=== PATIENT | female | born 1990 | race Caucasian/White ===

== ENCOUNTER 2023-08-13 08:26 | Outpatient (CLI) | payer OTHER, SELFPAY ==
--- NOTE | ~2023-08-13 | MMUS_ITS ---
EXAMINATION: MM diagnostic juana RT w mateo, US breast RT complete HISTORY: Right breast lump, 3:00 area 10 cm from nipple TECHNIQUE: ML, MLO and CC 3-D tomosynthesis images of the right breast were performed and synthetic 2 -D images were generated. CAD analysis was submitted and interpreted. High resolution complete right breast ultrasound examination including all 4 quadrants and subareolar area was performed. COMPARISON: None BREAST PARENCHYMAL COMPOSITION: The breasts are extremely dense, which lowers the sensitivity of mamm ography. FINDINGS: MAMMOGRAPHIC FINDINGS: No suspicious mass, architectural distortion, malignant calcification, skin thickening or retraction is evident. The extremely dense fibroglandular stroma may obscure masses anywhere in the breast. Complete right b reast ultrasound examination was performed. ULTRASOUND: The area of clinical complaint of right breast lump at 3:00 10 cm from the nipple there is a septated 4 x 8 mm cyst with through transmission posterior enhancement, no internal vascularity, benign. No suspicious mass or shadowing is detected anywhere in the right breast. IMPRESSION: 1. Benign findin x 8 mm septated cyst at 3:00 10 cm from nipple 2. No mammographic or sonographic evidence of malignancy BI-RADS Category 2: Benign finding(s). Reviewed, dictated and finalized at location A. IMPRESSION: 1. Benign findin x 8 mm septated cyst at 3:00 10 cm from nipple 2. No mammographic or sonographic evidence of malignancy BI-RADS Category 2: Benign finding(s).
== END 2023-08-13 08:27 ==
DX: N63.12 Unspecified lump in the right breast, upper inner quadrant (principal); Z78.9 Other specified health status
CPT/HCPCS: 76641; 77061; 77065; G0279

== ENCOUNTER 2025-07-05 11:47 | Emergency (ER) | payer BC, SELFPAY ==
--- NOTE | ~2025-07-05 | CT_ITS ---
EXAMINATION: CT abdomen pelvis w con DATE: 07/05/2025 15:46 INDICATION: Low abdominal pain. Diarrhea. TECHNIQUE: Computed tomography (CT) of the abdomen and pelvis was performed with 100 mL Omnipaque 350 intravenous contrast. Automated exposure control and iterative reconstruction technique were employed. The dose-length product was 187.40 mGy-cm. COMPARISON: None. FINDINGS: The visualized portions of the lung bases are clear without pneumonia or pleural effusion. The heart size is normal. No pericardial effusion. There is a 5 mm cyst in the liver. The gallbladder, spleen, pancreas, adrenal glands, and kidneys are normal. There is wall thickening throughout the colon with mucosal hyperemia, consistent with colitis. The appendix is normal. There are no pathologically enlarged lymph nodes. There is physiologic fluid in the pelvis. There is diastasis of the rectus abdominis muscles. There is mild lumbar spondylosis. IMPRESSION: 1. Pancolitis. Reviewed, dictated and finalized at location E. IMPRESSION: 1. Pancolitis.
--- OUTSIDE RECORDS SUMMARY | 2025-07-05 11:00 | XMS_ITS | Encounter Summary ---
Author Organization [facility] Healthcare Address [address] [place] [address] Care Team Providers Care Sawmill Worker Name Role Phone Mildred Payne Unavailable [phone] Mildred Payne Primary Care Provider [phone] Reason for Visit * Reason Comments Abdominal Pain Started on Friday , cramping, burning, and bloated Diarrhea Started on Friday , having lots of episodes but she is not getting a lot out at a time Encounter Details Date Type Department Care Team (Late st Contact Info) Description 07/05/2025 11:00 AM CDT Office Visit [facility] Medical [facility] Convenient Care at [address] [address] Betty Cortez NP [address] [place] [id number] Abdominal pain (Primary Dx); Diarrhea, unspecified type Social History Tobacco Use Types Packs/Day Years Used Date Smoking Tobacco: Never Smokeless Tobacco: Never Alcohol Use Standard Drinks/Week Comments Yes 1 (1 standard drink = 0.6 oz pur e alcohol) PHQ-2 Answer Date Recorded PHQ-2 Total Score (If total score is 3 or more points, staff should administer the PHQ-9) 0 06/30/2025 Early Depression Scale Answer Date Recorded Early Depression Scale Total 1 07/24/2020 The thought of harming myself has occurred to me . Never 07/24/2020 AUDIT-C Answer Date Recorded Q1: How often do you have a drink containing alc ohol? 2-4 times a month 06/30/2025 Q2: How many drinks containi ng alcohol do you have on a typical day when you are drinking? 1 or 2 06/30/2025 Q3: How often do you have si x or more drinks on one occasion? 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 Gender Identity Female 03/13/2020 4:31 PM CDT Sexual Orientation Straight 03/13/2020 4: 31 PM CDT documented as of this encounter Last Filed Vital Signs Vital Sign Reading Time Taken Comments Blood Pressure 118/84 07/05/2025 11:11 AM CDT Pulse 77 07/05/2025 11:11 AM CDT Temperature 37.3 C (99.1 F) 07/05/2025 11:11 AM CDT Respiratory Rate 18 07/05/2025 11:11 AM CDT Oxygen Saturation 97% 07/05/2025 11:11 AM CDT Inhaled Oxygen Concentration - - Weight 54.2 kg (119 lb 6.4 oz) 07/05/2025 11:11 AM CDT Height 162.6 cm (5' 4.02) 07/05/2025 11:11 AM C DT Body Mass Index 20.48 07/05/2025 11:11 AM CDT documented in this encounter Progress Notes * Betty Cortez, NEON TECHNICIAN - 07/05/2025 11:00 AM CDT Images from the original note were not included. Subjective/Objective Patient ID: Duyen Barksdale is a 35 y.o. female. This patient has verbally consented to recording this visit in order to utilize AI technology in generating this note. Chief Complaint Abdominal Pain (Started on Friday, cramping, burning, and bloated) and Diarrhea (Started on Friday, having lots of episodes but she is not getting a lot out at a time ) History of Present Illness Duyen Barksdale is a 35 year old female who presents with abdominal pain, cramping, and diarrhea. Symptoms began last Friday with burning abdominal pain, bloating, and cramping described as 'like a contraction.' The cramping is severe, lasting three to five minutes, and is accompanied by an urgent need to defecate, resulting in small amounts of diarrhea. Over the weekend, she passed a medium amount of diarrhea but still felt as if something was blocking or needed to come out. She was seen by her primary care provider last and was prescribed Pepcid and fiber pills, although the fiber pills were not sent. She has a history of gastrointestinal issues but has not been diagnosed with IBS or Crohn's disease. For treatment, she has been using Pepcid, Miralax, Tums, and Gas X. She took Miralax three times a day for three days over the weekend. She reported having 'okay days' and was able to eat more comfortably on Friday and Friday. However, she has struggled to eat since then, consuming only a little yogurt today. No history of abdominal surgeries, fever, vomiting, or blood in stool. She experiences nausea when the pain occurs. She is three months and confirms there is no chance of . Review of Systems All other systems reviewed and are negative. Physical Exam ABDOMEN: Bowel sounds present in all quadrants. Diffuse abdominal tenderness on palpation. Physical Exam Vitals reviewed. Constitutional: General: She is not in acute distress. Appearance: Normal appearance. She is not ill-appearing. HENT: Head: Normocephalic. Mouth/Throat: Lips: [place]. Cardiovascular: Rate and Rhythm: Normal rate. Pulmonary: Effort: Pulmonary effort is normal. Breath sounds: Normal breath sounds. Abdominal: General: Bowel sounds are decreased. There is no distension. Palpations: Abdomen is soft. Tenderness: There is generalized abdominal tenderness and tenderness in the right upper quadrant, right lower quadrant, left upper quadrant and left lower quadrant. Skin: General: Skin is warm. Neurological: Mental Status: She is alert and oriented to person, place, and time. Psychiatric: Mood and Affect: Mood normal. Vitals: 07/05/25 1111 BP: 118/84 Pulse: 77 Resp: 18 Temp: 37.3 ??C (99.1 ??F) SpO2: 97% Weight: 54.2 kg (119 lb 6.4 oz) Height: 162.6 cm (5' 4.02) No results found. Past Medical History: Diagnosis Date Abnormal Pap smear of cervix ASCUS of cervix with negative high risk HPV 03/07/2017 GBS (group B Streptococcus carrier), +RV culture, currently 05/19/2020 Current Outpatient Medications: famotidine (PEPCID) 20 mg tablet, Take 1 tablet (20 mg total) by mouth 2 (two) times a day, Disp: 60 tablet, Rfl: 11 [id number] 27-1-25-500 mg capsule, Take by mouth daily, Disp: , Rfl: polycarbophil (FIBERCON) 625 mg tablet, Take 1 tablet (625 mg total) by mouth daily (Patient not taking: Reported on 07/05/2025), Disp: 90 tablet, Rfl: 1 No Known Allergies Social History Tobacco Use Smoking status: Never Smokeless tobacco: Never Substance and Sexual Activity Drug use: Never Sexual activity: Yes Partners: Male control/protection: Condom Male, None Alcohol Use: Not At Risk (06/30/2025) AUDIT-C Frequency of Alcohol Consumption: 2-4 times a month Average Number of Drinks: 1 or 2 Frequency of Binge Drinking: Never Past Surgical History: Procedure Laterality Date HM SIGMOIDOSCOPY 2008 WISDOM TOOTH EXTRACTION Procedures Assessment/Plan 1. Abdominal pain (Primary) 2. Diarrhea, unspecified type Results No results found for this or any previous visit (from the past 4 hours). Assessment & Plan Abdominal pain with diarrhea and cramping Severe abdominal pain with diarrhea and cramping, likely IBS-C exacerbated by recent Augmentin use,gastritis, or possible impaction. - Recommend ER evaluation for further assessment and management. - Discussed starting with KUB x-ray for stool impaction, patient declined and will head in the ER - Patient can not stand up straight due to abdominal pain - Advise ER visit for potential CT scan, pain management, and evaluation for rectal prolapse or impaction. Education --GO TO ER Disposition Treatment plan including expectations, follow up, and return precautions discussed with patient/parent, verbalizes understanding. Medication dosage, use, and potential adverse reactions discussed with patient/parent. Advised to follow up with PCP if symptoms do not resolve as expected or sooner if condition worsens. Signs/symptoms warranting ER evaluation reviewed. Patient and/or guardian was given an opportunity to ask questions, questions answered. Betty Cortez NP This office note has been partially dictated using LEAFER software, and as a result portions of the record may have been created with this software. Occasional wrong-word or '[id number]' substitutions may have occurred due to the inherent limitations of voice recognition software. Read the chartcarefully and recognize, using context, where substitutions have occurred. Cosigned by Tio Kaiser MD at 07/05/2025 1:42 PM CDT documented in this encounter Plan of Treatment Not on file documented as of this encounter Visit Diagnoses Diagnosis Abdominal pain- Primary Abdominal pain, unspecified site Diarrhea, unspecified type documented in this encounter Care Teams Sawmill Worker Relationship Specialty Start Date End Date Mildred Payne PA [address] [place] [address] PCP - General 05/28/19 Mildred Payne PA [address] [place] [address] Physician Scraper Meat Physician Scraper Meat 01/29/19 documented as of this encounter
--- OUTSIDE RECORDS SUMMARY | 2025-07-05 11:00 | XMS_ITS | Encounter Summary ---
Author Organization [facility] Healthcare Address [address] [place] [address] Care Team Providers Care Material Distributor Name Role Phone Mildred Payne Unavailable [phone] Mildred Payne Primary Care Provider [phone] Reason for Visit * Reason Comments Abdominal Pain Started on Friday , cramping, burning, and bloated Diarrhea Started on Friday , having lots of episodes but she is not getting a lot out at a time Encounter Details Date Type Department Care Team (Late st Contact Info) Description 07/05/2025 11:00 AM CDT Office Visit [facility] Medical Group Convenient Care at [address] [address] Betty Cortez NP [address] [place] [address] Abdominal pain (Primary Dx); Diarrhea, unspecified type Social History Tobacco Use Types Packs/Day Years Used Date Smoking Tobacco: Never Smokeless Tobacco: Never Alcohol Use Standard Drinks/Week Comments Yes 1 (1 standard drink = 0.6 oz pur e alcohol) PHQ-2 Answer Date Recorded PHQ-2 Total Score (If total score is 3 or more points, staff should administer the PHQ-9) 0 06/30/2025 [place] Depression Scale Answer Date Recorded [place] Depression Scale Total 1 07/24/2020 The thought [...] on file 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 HENT: Head: Normocephalic. Mouth/Throat: Lips: [place]. Cardiovascular: Rate and Rhythm: Normal rate. Pulmonary: [...] a day, Disp: 60 tablet, Rfl: 11 [id number] 27-1-25-500 mg capsule, Take by mouth daily, [...] office note has been partially dictated using ThisLife software, and as a result portions of the record may have been created with this software. Occasional wrong-word or 'liijl-[id number]' substitutions may have occurred due to the [...] type documented in this encounter Care Teams Material Distributor Relationship Specialty Start Date End Date Mildred Payne PA [address] [place] [address] PCP - General 05/28/19 Mildred Payne PA [address] [place] [address] Physician Rolling Machine Tender Physician Rolling Machine Tender 01/29/19 documented as of this encounter
[2025-07-05 12:29] VITALS: BP 124/82; PULSE 70; RESP 14; TEMP 37.3; O2SAT 100
--- OUTSIDE RECORDS SUMMARY | 2025-07-05 13:48 | XMS_ITS | Patient Health Record ---
Author Organization [facility] Address [address] [place], [place] [id number] Care Team Providers Care Fly Rail Operator Name Role Phone JAILENE ROWLEY Unavailable [phone] Mildred Payne Unavailable Unavailable Reason For Referral No Information Plan Of Treatment No Information Insurance Providers Payer Name Payer Address Payer Phone Subscriber Number Group Number Insured Name Patient Relationship to Insured Coverage Start Date Coverage End Date [employer] [id number] [place], [place] [id number] EDUARDO DOWNEY Self - patient is the insured
[2025-07-05] MEDS: ONDANSETRON INJ 4 MG/2 ML VIAL IV PUSH (14:23)
[2025-07-05] MEDS: MORPHINE SULFATE (*CRX) 4 MG/ML INJ IV PUSH (14:24)
[2025-07-05] MEDS: SODIUM CHLORIDE 0.9% IV 1,000 ML 999 ML IV CONT (14:27)
--- OUTSIDE RECORDS SUMMARY | 2025-07-05 14:27 | XMS_ITS | Clinical Summary ---
Author Organization [address] Address [address] [place] [id number] Care Team Providers Care Machine Builder Name Role Phone Mildred Payne Unavailable [phone] Mildred Payne Primary Care Provider [phone] Allergies No known active allergies Medications [id number] 27-1-25-500 mg capsule Take by mouth daily Active famotidine (PEPCID) 20 mg tablet Take 1 tablet (20 mg total) by mouth 2 (two) times a day 60 tablet 11 5 06/30/20 26 Active polycarbophil (FIBERCON) 625 mg tablet Take 1 tablet (625 mg total) by mouth daily 90 tablet 1 5 12/28/19 26 Active Additional Information Patient not taking.Reported on 07/05/2025 amoxicillin-cl avulanate (AUGMENTIN) 875-125 mg per tablet Take 1 tablet by mouth 2 (two) times a day 5 06/30/20 25 Discontin ued(Thera py completed ) Active Problems Problem Noted Date Diagnosed Date Abdominal pain 06/30/2025 Assessment & Plan (07/03/2025 11:42 AM CDT): Chronic constipation 06/30/2025 Assessment & Plan (07/03/2025 11:42 AM CDT): Irritable bowel syndrome with constipation 06/30 Assessment & Plan (07/03/2025 11:42 AM CDT): Health maintenance examination 04/30/2021 Overview (10/29/2023): PMH: 10/29/23 Last pap:11/29/21 Last mammogram: Last dexa: Last colonoscopy/cologuard: Last tdap:03/30/2020 Last Prevnar/pneumovax: Last Shingrix: Last eye exam: Assessment & Plan (10/29/2023 10:36 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): PMH: 10/29/23 Last pap:11/29/21 Last mammogram: Last dexa: Last colonoscopy/cologuard: Last tdap:03/30/2020 Last Prevnar/pneumovax: Last Shingrix: Last eye exam: Assessment & Plan (04/30/2021 10:06 AM CDT): PMH: 04/30/2021 Last pap:01/2018 Last mammogram: Last dexa: Last colonoscopy/cologuard: Last tdap:03/30/2020 Last Prevnar/pneumovax: Last Shingrix: Last eye exam: Resolved Problems Problem Noted Date Diagnosed Date Resolved Date Supervision of other normal , antepartum 12/27/2021 10/29/2023 GBS (group B Streptococcus c arrier), +RV culture, currently 05/19/2020 04/30/2021 Supervision of normal first , antepartum 11/18/2019 07/25/2020 Overview (03/16/2020): First Trimester: [x] Labs [x] Genetic Screenin12/16/2019 2nd Trimester: [x] Anatomy ultrasound 3rd Trimester: [x] CBC, HIV, syphilis screen [x] 1hr GCT (26-28wks): [] Tdap (27-36wks) [] Rhogam (if Rh neg): [] GBS Annual physical exam 01/29/2019 020 Assessment & Plan (01/29/2019 1:12 PM CDT): Pap due in 2019 BMI less than 19,adult 01/29/201912/27 Oral contraceptive pill surveillance 01/28/2018 11/01/2019 Assessment & Plan (01/29/2019 1:12 PM CDT): Stable continue meds ASCUS of cervix with negative high risk HPV 03/07/2017 04/30/2021 Encounters Date Type Department Care Team Description 07/05/2025 11:00 AM CDT Office Visit [facility] Care at [address] [id number] Betty Cortez NP Abdominal pain (Primary Dx); Diarrhea, unspecified type 06/30/2025 9:00 AM CDT Office Visit [facility] [address] [phone] Anmol Sapp MD Irritable bowel syndrome with constipation (Primary Dx); Abdominal pain; Chronic constipation from Last 3 Months Immunizations Immunization Administration Dates Next Due DTaP 01/19/1997, 3,01/20/1993,10/30,1992 HPV, Quadrivalent 01/19/2010,07/28/2009,05/23/20 09 Hep A, Unspecified 06/04/2000,11/15/1999 Hep B, Unspecified 06/08/2010, 3,1992,08/22 Hib (HbOC) 09/29/1993, 3,1992,08/22 IPV 01/19/1997, 3,1992,08/22 Influenza, Quadrivalent, Yohana l Culture-based MDCK, Preservative Free, Antibiotic Free, Intramuscular 09/25/2022 Influenza, Quadrivalent, Spl it, Preservative Free, Intramuscular 07/22/2023,08/06/2020,08/06/2020 Influenza, Unspecified 06/30/2025(Deferr ed: Patient Refused),09/03/2024,09/03/2021, 018,08/01/2015 MMR 10/29/2023,01/19/1997,09/29/1993 Meningococcal MCV4P (Menactra) 05/20/2008 PPD TEST 05/25/2019, 9,07/01/2018,06/24,05/06/2014,04/29/2014,06/09/2010 ,10/31/1997,01/17/1997,07/21/1993 Pfizer SARS-CoV-2 Monovalent Vaccination (12+ Yrs) PURPLE 12/07/2020,11/14/2020 TD Preservative Free 05/25/2005 Tdap 12/30/2024,03/30/2020,04/29/2014 Varicella 04/29/2014 Surgical History Surgery Date Site/Laterality Comments WISDOM TOOTH EXTRACTION HM SIGMOIDOSCOPY 10/20/2008 - 10/19/2009 Medical History Medical History Date Comments ASCUS of cervix with negative high risk HPV 02/17 Abnormal Pap smear of cervix GBS (group B Streptococcus c arrier), +RV culture, currently 05/19/2020 Family History Medical History Relation Name Comments Heart disease Maternal Grandfather Soham Grayson Stroke Maternal Grandfather Soham Grayson Breast cancer Maternal Grandmother Ted Grayson Crohn's disease Maternal Grandmother Ted Grayson Diabetes Maternal Grandmother Ted Grayson Arthritis Mother Tahmina Mejia Lung cancer Paternal Grandfather Heart attack Paternal Grandmother Soham Grayson Colon cancer Neg Hx Ovarian cancer Neg Hx Uterine cancer Neg Hx Relation Name Status Comments Father Alive Maternal Grandfather Soham Grayson Maternal Grandmother Ted Grayson Mother Tahmina Mejia Alive Paternal Grandfather Paternal Grandmother Soham Grayson Alive Sister Alive Social History Tobacco Use Types Packs/Day Years Used Date Smoking Tobacco: Never Smokeless Tobacco: Never Tobacco Cessation:Counseling Given: Not Answered Alcohol Use Standard Drinks/Week Comments Yes 1 (1 standard drink = 0.6 oz pur e alcohol) PHQ-2 Answer Date Recorded PHQ-2 Total Score (If total score is 3 or more points, staff should administer the PHQ-9) 0 06/30/2025 [place] Depression Scale Answer Date Recorded [place] Depression Scale Total 1 07/24/2020 The thought [...] on file Legal Sex Female 7:48 PM GROUND SU[employer]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 ASSEMBLER Gender Identity Female 03/13/2020 4:31 PM CDT Sexual Orientation Straight 03/13/2020 4: 31 PM CDT Obstetrics History Para Term AB IAB SAB Ectopic Multiple Livin g Live Births 2 1 1 0 0 0 0 0 0 1 1 Date Outcome GA Total Labor Labor/2nd/3rd Weight Sex Type Anes PTL Rupal A1 A5 Name Clin 020 Term 40w 3d 3.6 kg (7 lb 15 oz) M Vag-S pont Epidur al Livin g Complications:None Delivery Location:This [facility] Last Filed Vital Signs Vital Sign Reading [...] Mass Index 20.48 07/05/2025 11:11 AM CDT Plan of Treatment Health Maintenance Due Date Last Done Comments Regular Well Visit/Exam 18-64 10/29/2024 10/29/2023, 11/29/2021, 04/30/2021, Additional history exists Covid-19 Vaccine ( season) 2025 12/07/2020, 11/14/2020 Influenza Vaccine (#1) 2025 4, 07/22/2023, 09/25/2022, Additional history exists Cervical Cancer Screening 11/29/20262021, 01/28/2018, 03/07/2017, Additional history exists DTaP/Tdap/Td Vaccine (9 - Td or Tdap) 12/30/2034 12/30/2024, 03/30/2020, 04/29/2014, Additional history exists HPV Vaccines Completed 01/19/2010, 06/2009, 05/23/2009 Hepatitis B Screening Completed 06/08/2010 , 04/14/1993, 1992, Additional history exists Varicella Vaccines Discontinued 04/29/2014 Hepatitis C Screening Completed 11/29/2021, 020 Depression Screening Discontinued 06/30/2025, 11/05/2023, 10/29/2023, Additional history exists Pneumococcal vaccine <65 Aged Out No longer eligible based on patient's age to complete this topic Procedures Procedure Name Priority Date/Time Associated Diagnosis Comments HEPATITIS C ANTIBODY Routine 11/29/2021 11:40 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 Missed menses Positive test PAP WITH REFLEX TO HIGH RISK HPV Routine 11/29/2021 9:30 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 Missed menses Screening for cervical cancer Positive test from Last 3 Months or Most Recently Relevant to Health Maintenance Results * Hepatitis C antibody (11/29/2021 11:40 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) Hep C Ab Nonreactive Nonreactive [facility] RUVALCABA Comment: Interpretive Data Nonreactive: Antibodies to HCV not detected. Does NOT exclude the possibility of recent exposure to HCV. Equivocal: Equivocal for HCV antibodies. Supplemental molecular testing will be automatically performed to determine infection status in accordance with current CDC screening recommendations. Reactive: Positive for HCV antibodies. This may represent current or past HCV infection. Supplemental molecular testing will be automatically performed to determine current infection status in accordance with current CDC screening recommendations. Interpretive data was last revised on 2020. Blood 11/29/2021 11:4 0 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 11/29/2021 3:11 PM GROUND SUPPORT EQUIPMENT ASSEMBLER us Merle Bueno [facility] MICROBIOLOGY - GENE RAL ORDERABLES Final Result [facility] [address] [facility] Department [place] [address] * (ABNORMAL) Pap with reflex to High Risk HPV (11/29/2021 9:30 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) Thin prep (Pap test) 11/29/2021 9:30 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 12/03/2021 9:30 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 Narrative PATHOLOGY [facility] - 12/06/2021 9:56 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 [facility] Department of Pathology [address] [place] [id number] Final Report with Addendum Note to Patients: This report may contain a detailed description of human tissue sent by a health care provider to the laboratory for pathologic evaluation. The content of this report is essential for diagnosis and may provide important critical findings. This information may be unfamiliar to patients to review without a medical professional present. It is advised that the patient review this report in the presence of a health care provider who can answer questions and explain the details. Patient Name: EDUARDO JI V. Address: [address] [place] [id number] Gender: F : 1990 (Age: 31) Service: Laboratory Location: N : [id number] Hospital #: [id number] Patient Type: [facility] SPECIMEN Taken: 11/29/2021 Received: 12/03/2021 Accessioned:: 12/04/2021 Reported: 12/06/2021 Physician(s): Merle Bueno [facility] Diagnosis: Source of Specimen: Imaged Thinprep Pap Test w/ Reflex HPV - Airport Operations Specialist Cytologic Material Specimen Adequacy: - Satisfactory for evaluation; endocervical/transformation zone component present General Category: - Epithelial cell abnormality Interpretation/Results: - Atypical squamous cells of undetermined significance; - High risk HPV test pending -- addendum to follow SENTHIL Marsh(ASCP) Ludwig Botello M.D. Report Electronically Reviewed and Signed Out By Ludwig Btoello M.D. 12/06/2021 09:56:36 Addenda: HPV Test Interpretation NEGATIVE for types 16, 18, 31, 33, 35, 39, 45, 51, 52, 56, 58, 59, 66 and 68. Test performed utilizing Gen-Probe Aptima assay. SENTHIL Sears(ASCP) Report Electronically Reviewed and Signed Out By SENTHIL Sears(ASCP) 12/07/2021 14:15:16 Specimen(s) Received: A: Imaged Thinprep Pap Test w/ Reflex HPV - Airport Operations Specialist Cytologic Material Clinical History: Last Menstrual Period: 10/05/21 Menstrual History: The Pap test is a screening test used to aid in the detection of cervical cancer and its precursors. It should not be the sole means by which malignant and premalignant lesions are diagnosed. Both false negative and false positive results may occur. It also has poor sensitivity for the detection of endometrial lesions and should not be used to evaluate suspected endometrial abnormalities. For these reasons it is most important to obtain Pap tests at regular intervals. The performance characteristics of some immunohistochemical stains, fluorescence in-situ hybridization tests and immunophenotyping by flow cytometry cited in this report (if any) were determined by the Surgical Pathology Department at [facility] as part of an ongoing quality control assistant program and in compliance with federally mandated regulations drawn from the Clinical Laboratory Improvement Act of 1988 (CLIA '88). Some of these tests rely on the use of analyte specific reagents and are subject to specific labeling requirements by the US Food and Drug Administration. Such diagnostic tests may only be performed in a facility that is certified by the Department of Health and Human Services as a high complexity laboratory under CLIA '88. The FDA has determined that such clearance or approval is not necessary. This test is used for clinical purposes. It should not be regarded as investigational or for research. Nevertheless, federal rules concerning the medical use of analyte specific reagents require that the following disclaimer be attached to the report: This test was developed and its performance characteristics determined by the Surgical Pathology Department [facility]. It has not been cleared or approved by the U. S. Food and Drug Administration. Merle Bueno [facility] CYTOLOGY ORDERABLES Final Result PATHOLOGY [facility] from Last 3 Months or Most Recently Relevant to Health Maintenance Insurance [facility] [employer] Address: [address] [place] [address] Advance Directives For more information, please contact: [phone] Documents on File Type Date Recorded Patient Ramp Agent Expl anation ADVANCE DIRECTIVE 03/13/2021 3:25 PM Care Teams Machine Builder Relationship Specialty Start Date End Date Mildred Payne PA [address] [place] [address] PCP - General 05/28/19 Mildred Payne PA [address] [place] [address] Physician Fisher Clam Physician Fisher Clam 01/29/19
[2025-07-05 14:37] LABS: Hematocrit 41.8 % (37.0-47.0); Hemoglobin 13.6 g/dL (12.0-15.0); Immature Granulocyte Percent A 0.2 % (0-0.5); Lymphocytes Absolute Auto 1.26 K/mm3 (0.9-3.2); Mean Corpuscular HGB Conc 32.5 g/dl (32-36); Mean Corpuscular Hemoglobin 28.4 pg (26-34); Mean Corpuscular Volume 87.3 fl (80-100); Nucleated Red Blood Cells Absolute Auto 0.000 K/mm3 (0.0-0.012); Nucleated Red Blood Cells Perc 0.0 % (0.0-0.2); Platelet Count Result 251 k/mm3 (150-375); Red Blood Count 4.79 M/mm3 (4.2-5.4); White Blood Count 10.1 K/mm3 (4.5-10.0)
[2025-07-05 14:48] LABS: Alanine Aminotransferase 17 U/L (6-35); Albumin Level 4.2 g/dL (3.5-5.1); Alkaline Phosphatase 90 U/L (38-126); Anion Gap 9 mmol/L (4-12); Aspartate Amino Transferase 20 U/L (14-36); Bilirubin,Total 0.6 mg/dL (0.2-1.3); Blood Urea Nitrogen 11 mg/dL (7-17); Calcium 8.7 mg/dL (8.4-10.2); Carbon Dioxide 23 mmol/L (22-30); Chloride 105 mmol/L (98-107); Estimated CRCL calculation 82 ml/min; Estimated Glomerular Filt Rate > 60; Glucose 84 mg/dL (65-110); Lipase 46 U/L (23-300); Potassium 3.8 mmol/L (3.4-5.0); Sodium 137 mmol/L (137-145); Total Protein 7.2 g/dL (6.3-8.2)
--- NOTE | 2025-07-05 14:58 | ED_ITS ---
HPI - Abdominal Pain General Chief Complaint: Abdominal Pain Stated Complaint: ABD PAIN Time Seen by Provider: 07/05/25 12:43 Source: patient Mode of arrival: ambulatory Limitations: no limitations History of Present Illness HPI narrative: Patient is a 35-year-old female who presents the ED with report of lower abdominal pain. Patient reports she was on Augmentin 2 weeks ago for a sinus infection. She began having diarrhea and abdominal discomfort with this and stop taking this after 9 doses. She reports having persistent pain and diarrhea. Denies rectal bleeding, melena. Reports some nausea associated with the pain. Denies vomiting. Denies fevers. Patient is 3.5 months . Related Data Allergies Allergy/AdvReac Type Severity Reaction Status Date / Time No Known Allergies Allergy Verified 07/05/25 11:49 Review of Systems 2 Review of Systems: All systems reviewed & are unremarkable except as noted in HPI. All systems reviewed & are unremarkable except as noted in HPI and below Exam 2 Narrative: GENERAL: Well appearing, thin, non-toxic, in no acute distress. HEAD: Normocephalic, atraumatic. RESPIRATORY: Airway patent, respirations nonlabored. Clear to auscultation bilaterally, no rales, rhonchi, wheezing. CARDIOVASCULAR: Regular rate and rhythm without murmurs, rubs, or gallops. ABDOMINAL: Soft, mild diffuse tenderness throughout lower abdomen, nondistended. Normoactive BS. MUSCULOSKELETAL: Moves all extremities. No gross deformities. SKIN: Warm, dry, normal color. NEURO: A&O X3. Speech clear. Cranial nerves II-XII grossly intact. Steady gait. No ataxic movements. PSYCHIATRIC: Appropriate mood and affect. Normal interaction. Course Vital Signs Vital signs: Vital Signs Temperature 99.2 F 07/05/25 12:29 Pulse Rate 70 07/05/25 12:29 Respiratory Rate 14 07/05/25 12:29 Blood Pressure 124/82 07/05/25 12:29 Pulse Oximetry 100 07/05/25 12:29 Temperature 99.2 F 07/05/25 12:29 Pulse Rate 70 07/05/25 12:29 Respiratory Rate 14 07/05/25 12:29 Blood Pressure 124/82 07/05/25 12:29 Pulse Oximetry 100 07/05/25 12:29 MDM - Abdominal Pain MDM Narrative Medical decision making narrative: Patient presented to ED with several day hx of lower abdominal discomfort, diarrhea. Vital signs are stable upon arrival. Patient in no acute distress, but did report diffuse discomfort with palpation of abdomen. Cbc with blood cell count of 10.1. CMP is unremarkable. No significant abnormalities or signs of dehydration. Normal LFTs and lipase. UA with evidence of dehydration, 11-20 WBC. Patient denies any urinary complaints. Sent for culture. CT scan of abdomen/pelvis was obtained and showing evidence of parkinson colitis. Consistent with clinical picture. Discussed lab and imaging findings with patient. She is feeling much improved with supportive therapy in the ED. Discussed antibiotic regimen for pancolitis including Cipro/Flagyl. Patient is currently . Per epocrates, it is not recommended to breast feed while on ciprofloxacin during the duration antibiotics and for 2 days afterwards. Discussed this with patient and family. Utilize shared decision-making. They are in agreement with continuing with antibiotics. All questions were answered. Also prescribed Bentyl and short course of pain medicine for home use. Patient advised to follow-up with PCP for further evaluation. Given strict return precautions. She is in agreement with plan. Discharged in stable condition. Medical Records Attestation: I reviewed the patient's medical records. Lab Data Attestation: I reviewed the patient's lab results. 07/05/25 14:21 07/05/25 14:21 Labs: Lab Results 07/05/25 07/05/25 07/05/25 Range/Units 14:21 15:14 15:16 WBC 10.1 H (4.5-10.0) K/mm3 RBC 4.79 (4.2-5.4) M/mm3 Hgb 13.6 (12.0-15.0) g/dL Hct 41.8 (37.0-47.0) % MCV 87.3 (80-100) fl MCH 28.4 (26-34) pg MCHC 32.5 (32-36) g/dl RDW 12.5 (11.5-14.5) % Plt Count 251 (150-375) k/mm3 MPV 11.0 H (7.4-10.4) fl Immature Gran % (Auto) 0.2 (0-0.5) % Neut % (Auto) 79.3 H (45.5-73.1) % Lymph % (Auto) 12.4 L (18.3-44.2) % Hendricks % (Auto) 7.2 (2.6-8.5) % Eos % (Auto) 0.5 (0-4.4) % Baso % (Auto) 0.4 (0.2-1.2) % Lymph # (Auto) 1.26 (0.9-3.2) K/mm3 Hendricks # (Auto) 0.7 H (0.1-0.6) K/mm3 Eos # (Auto) 0.1 (0-0.3) K/mm3 Baso # (Auto) 0.0 (0.0-0.1) K/mm3 Abs Immat Gran (auto) 0.02 (0.00-0.031) K/mm3 Absolute Neuts (auto) 8.0 H (1.3-6.7) K/mm3 Absolute Nucleated RBC 0.000 (0.0-0.012) K/mm3 Nucleated RBC % 0.0 (0.0-0.2) % Sodium 137 (137-145) mmol/L Potassium 3.8 (3.4-5.0) mmol/L Chloride 105 (98-107) mmol/L Carbon Dioxide 23 (22-30) mmol/L Anion Gap 9 (4-12) mmol/L BUN 11 (7-17) mg/dL Creatinine 0.73 (0.7-1.0) mg/dL Estim Creat Clear Calc 82 ml/min Estimated GFR > 60 (59 - ) Glucose 84 (65-110) mg/dL Calcium 8.7 (8.4-10.2) mg/dL Total Bilirubin 0.6 (0.2-1.3) mg/dL AST 20 (14-36) U/L ALT 17 (6-35) U/L Alkaline Phosphatase 90 (38-126) U/L Total Protein 7.2 (6.3-8.2) g/dL Albumin 4.2 (3.5-5.1) g/dL Lipase 46 (23-300) U/L Urine Color Yellow (Yellow) Urine Appearance Clear (Clear) Urine pH 5.5 (5.0-9.0) Ur Specific [place] 1.027 (1.001-1.035) Urine Protein Negative (Negative) mg/dL Urine Glucose (UA) Negative (Negative) mg/dL Urine Ketones 3+ H (Negative) mg/dL Ur Blood (Man) Negative (Negative) Urine Nitrate Negative (Negative) Urine Bilirubin Negative (Negative) Urine Urobilinogen 0.2 (<2.0) mg/dL Leukocyte Esterase Rfl Trace H (Negative) SHERWIN/UL Urine RBC 0-2 (0-2) /hpf Urine WBC 11-20 H (0-3) /hpf Ur Squamous Epith Cells Moderate (Few) /hpf Urine Bacteria None seen /hpf Urine Casts 0-2 POC Urine HCG, Qual Negative (Negative) Imaging Data Attestation: I personally reviewed and interpreted this imaging study as follows: Radiologist's impression: ITS Impressions Abdomen/Pelvis CT 07/05/25 15:53 IMPRESSION: 1. Pancolitis. Discharge Plan Discharge Clinical Impression: Pancolitis Patient Disposition: Home Condition: Stable Instructions: Antibiotic Form, Abdominal Pain (ED), Infectious Colitis (ED), Colitis (ED) Additional Instructions: Take both antibiotics as prescribed. It is recommended that to to not breast- feed while on the antibiotics and for 2 days after finishing antibiotics. Recommend Tylenol, ibuprofen, Bentyl as needed for abdominal discomfort. Outing as needed for more severe pain. Stay very well hydrated. Recommend plenty of fluids. Recommend clear liquids or bland diet until symptoms improve, such as bananas, rice, applesauce, toast, or crackers. Follow up with your primary care doctor for further evaluation. Return to the ED if you experience worsening or severe symptoms, unable to keep down food or drink, severe pain, fevers, rectal bleeding, vomiting blood, or any other symptoms of concern. Patient Language: Wallisian Prescriptions: New hydrocodone-acetaminophen 5-325 mg tablet 1 tablet PO Q6H PRN (Reason: pain) Qty: 5 0RF ciprofloxacin HCl 500 mg tablet 500 mg PO Q12H 7 Days Qty: 14 0RF dicyclomine 20 mg tablet 20 mg PO TID PRN (Reason: Abdominal Discomfort) Qty: 15 0RF metronidazole 500 mg tablet 500 mg PO Q8H 7 Days Qty: 21 0RF Follow-up/Referrals: UNKNOWN,DOCTOR [Primary Care Provider] Time of Disposition: 17:17
[2025-07-05 15:18] LABS: BEDSIDEPREGUCG Negative (Negative)
[2025-07-05 15:26] LABS: Add Urine Microscopic? YES; Appearance Urine Clear (Clear); Glucose Urine UA Negative (Negative); Leukocyte Esterase Ur Trace LEU/UL (Negative); Nitrate Urine Negative (Negative); Non Pathogenic Casts 0-2; Specific Grav Ur 1.027 (1.001-1.035)
[2025-07-05 17:25] VITALS: BP 112/83; PULSE 78; RESP 16; O2SAT 98
== END 2025-07-05 17:33 | disposition home or self-care (01) ==
PROVIDERS: Emergency Provider Physician Assistant
DX: K52.9 Noninfective gastroenteritis and colitis, unspecified (principal)
CPT/HCPCS: 36415; 74177; 80053; 81001; 81025; 83690; 85025; 87086; 96361; 96374; 96375; 99284; J2270; J2405; J7030; Q9967